=== PATIENT | female | born 1935 | race Caucasian/White ===

== ENCOUNTER 2019-02-06 19:32 | Emergency (ER) | payer OTHER ==
[~2019-02-06] VITALS: Ht 154.9 cm; Wt 54.0 kg
[~2019-02-06 19:32] MED LIST: COZAAR100 MG; LIPITOR40 MG; SYNTHROID50 MCG; ZANTAC300 MG
[2019-02-06] MEDS ORDERED: CLONAZEPAM1 MG (19:47)
== END 2019-02-06 21:34 | disposition home or self-care (01) ==
LOC: ER 19:32
DX: N39.0 Urinary tract infection, site not specified (principal)

== ENCOUNTER 2019-06-23 15:13 | Emergency (ER) | payer OTHER ==
[~2019-06-23] VITALS: Ht 152.4 cm; Wt 53.5 kg
[~2019-06-23 15:13] MED LIST changes: +CLONAZEPAM1 MG
[2019-06-23] MEDS ORDERED: ATIVAN0.5 M1 (16:09)
[2019-06-23] MEDS ORDERED: NORVASC2.5 M1 (16:09)
[2019-06-23] MEDS ORDERED: MONTELUKAST SODI4 M1 (16:09)
[2019-06-23] MEDS ORDERED: PEPCID AC20 MG (16:10)
[2019-06-23] MEDS ORDERED: LAXATIVE FEMININ5 MG (16:10)
[2019-06-23] MEDS ORDERED: PLAVIX75 MG (16:11)
[2019-06-23] MEDS ORDERED: TOPROL XL25 M1 (16:11)
== END 2019-06-23 18:45 | disposition home or self-care (01) ==
LOC: ER 15:13
DX: K21.9 Gastro-esophageal reflux disease without esophagitis (principal)

== ENCOUNTER 2022-01-07 21:16 | Emergency (ER) | payer OTHER ==
[~2022-01-07] VITALS: Ht 152.4 cm; Wt 56.7 kg
[~2022-01-07 21:16] MED LIST changes: +ATIVAN0.5 M1; +LAXATIVE FEMININ5 MG; +MONTELUKAST SODI4 M1; +NORVASC2.5 M1; +PEPCID AC20 MG; +PLAVIX75 MG; +TOPROL XL25 M1
[2022-01-07] MEDS ORDERED: ATROVENT HFA12.9 GM (21:54)
[2022-01-07] MEDS ORDERED: PROAIR RESPICL90 MCG (21:54)
[2022-01-08] MEDS ORDERED: ZITHROMAX200 MG PO (00:36)
[2022-01-08] MEDS ORDERED: MEDROLPACK PO (00:37)
== END 2022-01-08 00:56 | disposition home or self-care (01) ==
LOC: ER 21:16
DX: U07.1 COVID-19 (principal); R53.81 Other malaise; Z88.0 Allergy status to penicillin; Z88.6 Allergy status to analgesic agent